=== PATIENT | male | born 1975 | race Caucasian/White ===

== ENCOUNTER 2016-04-14 14:37 | Inpatient (IN) ==
[2016-04-14] MEDS ORDERED: CLINDAMYCIN 900 MG in DEXTROSE 5% IN WATER 50 ML IV ONE (15:54)
[2016-04-14] MEDS ORDERED: ONDANSETRON 4 MG/2 ML VIAL IV ONE (15:56)
[2016-04-14] MEDS ORDERED: 0.9 % SODIUM CHLORIDE 1,000 ML IV ONE (15:56)
[2016-04-14] MEDS: HYDROmorphone 2 MG/ML SYRINGE IV PRN ×2 (16:20→18:02)
[2016-04-14] MEDS ORDERED: DEXTROSE 5% IN WATER 50 ML IV ONE (16:25)
[2016-04-14] MEDS ORDERED: CLINDAMYCIN 600 MG/4 ML VIAL ONE (16:25)
--- NOTE | 2016-04-14 17:11 | XRay Report ---
CLINICAL INFORMATION: Trauma COMPARISON: None. FINDINGS: No radiopaque foreign body identified. A small phlebolith is noted in the subdermal soft tissues over the anterior medial mid calf Soft tissues are normal. There is no fracture or other osseous abnormality. Joint spaces are normal. IMPRESSION: Negative Interpreted and Authenticated by: Nolan Arriaga 04/14/16
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
[2016-04-14 18:10] LABS: Basophils # (Auto) 0 K/mcL (0.0-0.3); Basophils % (Auto) 0.3 % (0.0-2.0); Eosinophils # (Auto) 0 K/mcL (0.0-0.7); Eosinophils % (Auto) 0.4 % (0.0-7.0); Granulocytes % (Auto) 70.7 % (38.0-78.0); Lymphocytes % (Auto) 19.2 % (15.5-49.0); Mean Cell Volume 88.1 fL (80.0-100.0); Mean Corpuscular HGB Conc 32.7 g/dL (31.0-36.0); Mean Corpuscular Hemoglobin 28.8 pg (26.0-34.0); Monocytes % (Auto) 9.4 % (1.0-9.0); Platelet Count 183 K/mcL (140-440); RBC 5.42 M/mcL (4.50-5.90); Red Cell Distribution Width 12.8 % (11.5-14.5)
[2016-04-14] MEDS ORDERED: VANCOMYCIN PER PHARMACY IV ONE (18:30)
[2016-04-14] MEDS ORDERED: ONDANSETRON 4 MG/2 ML VIAL IV PRN (18:30)
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
[2016-04-14] MEDS ORDERED: PIPERACILLIN SODIUM/TAZOBACTAM 3.375 GM VIAL IV ONE (20:26)
[2016-04-14] MEDS: PIPERACILLIN SODIUM/TAZOBACTAM 3.375 GM in DEXTROSE 5% IN WATER 50 ML IV SCH (20:27)
[2016-04-14] MEDS ORDERED: VANCOMYCIN 500 MG VIAL ONE (20:40)
[2016-04-14] MEDS: VANCOMYCIN 1,500 MG in 0.9 % SODIUM CHLORIDE 500 ML IV SCH (20:49)
[2016-04-14] MEDS: 0.9 % SODIUM CHLORIDE 10 ML SYRINGE IV SCH (22:27)
[2016-04-15] MEDS ORDERED: PIPERACILLIN SODIUM/TAZOBACTAM 3.375 GM VIAL IV ONE ×2 (00:24→05:22)
[2016-04-15] MEDS: PIPERACILLIN SODIUM/TAZOBACTAM 3.375 GM in DEXTROSE 5% IN WATER 50 ML IV SCH ×5 (00:52→17:09)
[2016-04-15 05:26] LABS: Appearance,Urine HAZY; Bacteria,Urine 0 /hpf (0); Bilirubin,Urine NEG (NEG); Color,Urine YELLOW; Glucose,Urine (UA) NEGATIVE (NEG); Leukocyte Esterase,Urine NEG /uL (NEG); Mucus,Urine FEW /hpf (0); Nitrate,Urine NEG (NEG); Protein,Urine NEG (NEG); Specific Gravity,Urine 1.017 (1.000-1.035); Sperm,Urine PRESENT /hpf (ABSENT); Urine Amorphous Crystals FEW /hpf (0); Urine Blood NEG mg/dL (<0.03); Urine RBC 3 /hpf (0-1); Urine Squamous Epithelial Cell < 1 /hpf (0-4); Urine Transitional Epi Cells < 1 /hpf (0-2); Urine WBC 1 /hpf (0-4); Urobilinogen,Urine NEG (NEG)
[2016-04-15 05:40] LABS: ALT/SGPT 29 U/l (0-40); Albumin 3.8 gm/dL (3.2-5.2); Albumin/Globulin Ratio 1.4 (1.0-2.3); Alkaline Phosphatase 113 U/L (39-117); Bilirubin,Direct < 0.2 mg/dL (0.0-0.3); Blood Urea Nitrogen 15 mg/dl (6-20); Gamma Glutamyl Transpeptidase 26 U/L (8-61); Magnesium 1.8 mg/dL (1.6-2.5); Phosphorous 4.3 mg/dL (2.7-4.5); Uric Acid 5.1 mg/dL (2.5-8.0)
[2016-04-15] MEDS: 0.9 % SODIUM CHLORIDE 10 ML SYRINGE IV SCH ×2 (05:51→10:31)
[2016-04-15] MEDS: VANCOMYCIN 1,500 MG in 0.9 % SODIUM CHLORIDE 500 ML IV SCH ×2 (08:14→20:21)
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
[2016-04-15] MEDS ORDERED: SCOPOLAMINE 1 PATCH PATCH TOPICAL ONE (11:19)
[2016-04-15] MEDS ORDERED: ONDANSETRON 4 MG/2 ML VIAL ONE (11:31)
[2016-04-15] MEDS ORDERED: PROMETHAZINE 25 MG/ML VIAL ONE (11:31)
[2016-04-15] MEDS ORDERED: MIDAZOLAM 5 MG/5 ML VIAL ONE (11:31)
[2016-04-15] MEDS ORDERED: fentaNYL 100 MCG/2 ML VIAL IV ONE ×2 (11:31→11:53)
[2016-04-15] MEDS ORDERED: GLYCOPYRROLATE 0.2 MG/ML VIAL IV ONE (11:31)
[2016-04-15] MEDS ORDERED: PROPOFOL 200 MG/20 ML VIAL IV ONE (11:31)
[2016-04-15] MEDS ORDERED: LIDOCAINE HCL/PF 100 MG/5 ML SYRINGE IV ONE (11:31)
[2016-04-15] MEDS ORDERED: DEXAMETHASONE 10 MG/ML VIAL ONE (11:31)
[2016-04-15] MEDS ORDERED: GENTAMICIN SULFATE 80 MG/2 ML VIAL IRR ONE (11:44)
[2016-04-15] MEDS ORDERED: HYDROmorphone 2 MG/ML SYRINGE IV PRN (11:53)
[2016-04-15] MEDS ORDERED: METHOCARBAMOL 1,000 MG/10 ML VIAL IV PRN (11:53)
[2016-04-15] MEDS ORDERED: MEPERIDINE 25 MG/ML SYRINGE IV PRN (11:53)
[2016-04-15] MEDS ORDERED: KETOROLAC 30 MG/ML VIAL IV ONE (11:53)
[2016-04-15] MEDS ORDERED: fentaNYL 100 MCG/2 ML VIAL IV PRN (11:53)
[2016-04-15] MEDS ORDERED: METOCLOPRAMIDE 10 MG/2 ML VIAL IV PRN (11:53)
[2016-04-15] MEDS ORDERED: BENZOCAINE/MENTHOL 1 LOZENGE PO PRN (11:53)
[2016-04-15] MEDS ORDERED: IPRATROPIUM/ALBUTEROL 3 ML AMPUL.NEB NEB PRN ×2 (11:53→13:06)
[2016-04-15] MEDS ORDERED: LACTATED RINGERS 1,000 ML IV SCH ×2 (12:00→13:06)
--- NOTE | 2016-04-15 12:24 | General Surgery Procedure Note ---
Date of procedure: Note initiated : 04/15/16 at 12:20 pm Service Date, if different from initiated Date: [] Pre-op diagnosis: Traumatic wound with soft tissue necrosis Rt, leg Post-op diagnosis: same Procedure: Excisional Debridement , Pulse lavage irrigation, Wound VAC placement. Findings: Wound dimensions 7 x5 x2 CM Tunnelling from 10 to 2 for 7 CM Wound extends to muscle and fascia EBL 30 ml Anesthesia: GLMA Surgeon: Paul Cervantes Pathology: other (Histology and cultures) Description of procedure: Wide Excision, Pulse lavage irrigation, Suture ligation of bleeders, WOUND VAC application Condition: stable Disposition: PACU (Wound VAC to be connected to Continuius wall suction at Medium, UNTIL portable apparatus available. Operation Well Tolerated.)
[2016-04-15] MEDS ORDERED: BACITRACIN 50,000 UNIT VIAL IR ONE (12:26)
[2016-04-15] MEDS ORDERED: CLINDAMYCIN 600 MG/4 ML VIAL IR ONE (12:32)
[2016-04-15] MEDS ORDERED: 0.9 % SODIUM CHLORIDE 10 ML SYRINGE IV PRN (13:23)
[2016-04-15] MEDS ORDERED: oxyCODONE/APAP 5/325MG TABLET PO PRN ×2 (14:35→17:02)
[2016-04-15] MEDS: NICOTINE 21 MG PATCH TOPICAL SCH (15:29)
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
[2016-04-16] MEDS: PIPERACILLIN SODIUM/TAZOBACTAM 3.375 GM in DEXTROSE 5% IN WATER 50 ML IV SCH ×3 (00:02→12:57)
[2016-04-16] MEDS: oxyCODONE/APAP 5/325MG TABLET PO PRN ×4 (04:20→19:06)
--- NOTE | 2016-04-16 08:22 | Operative Note ---
DATE OF OPERATION: 04/15/2016 PREOPERATIVE DIAGNOSIS: Traumatic wound left lower leg, medial surface of the condyle, soft tissue necrosis. POSTOPERATIVE DIAGNOSIS: Traumatic wound left lower leg, medial surface of the condyle, soft tissue necrosis. OPERATION: Excision debridement, pulse lavage irrigation. Wound V.A.C. placement. Wound dimensions: 7 x 5 x 2 cm. Proximal TUNNELING 10 o'clock to 2 o'clock for 7 cm. This wound extends to the underlying muscle and fascia. There is no skin cover over the inferior part of the wound which is distal WOUND BUT ABOVE THE MEDIAL MALLEOLUS of ankle joint. Wound dimensions 7 x 5 x 2 4 cm wound tunneling superiorly 10 o'clock to 2 o' clock for 7 cm. PROCEDURE NOTE: After obtaining informed consent, patient was taken to the operating room, anesthetized uneventfully in supine position using laryngeal mask airway. A timeout was called. First, we used a #15 scalpel blade and tangential excision of entire wound was carried out and all the devitalized skin and thrombosed blood vessels were sharply excised until bright red bleeding was noted from the wound edges and depth. Later, this wound was carefully probed with #7 curet. All the loculations under the skin were broken down with hand or curet. The wound bed itself was also curetted. Video Surveillance Technician samples were sent for cultures and pathology. We now proceeded to thoroughly wash and clean this wound using pulse lavage medical technologist. Three liters of normal saline mixed with 80 mg of gentamicin solution, 600 mg of clindamycin and 50,000 units of bacitracin was used. Towards completion, the wound was cleaned and the wound bed was dry and stable. We used a Xeroform gauze which was cut according to the dimensions of the wound and carefully placed superiorly. A black foam was applied over this to cover the extent of the wound. Later, this site was covered with adhesive dressings. A small window was created over the black foam. A second piece of black foam was placed at this site and covered again with the transparent adhesive dressing. A small portion of the size 1/4 was cut out and trackpad was applied. It was connected to continuous suction. This confirmed satisfactory collapse of the wound. Later, the tubing was snapped shut. In the postoperative stage, this patient will be admitted to the floor. He is a full admission. We will continue with wall suction intermediate to high so as to effectively provide decompression of this site. A I wound V.A.C. canister has been ordered and still awaited. In the meantime, the wound will be wall suctioned and connected to continuous negative pressure suction applied to the wall canister. ESTIMATED BLOOD LOSS: 30 mL. INSTRUMENT COUNT: Count of swabs, instruments and needles was reported to be correct. Procedure was well tolerated. VD:matt Job ID: [id number] Doc ID: [id number] Paul SIERRA
[2016-04-16] MEDS ORDERED: DOCUSATE SODIUM 100 MG CAPSULE PO SCH (09:00)
--- NOTE | 2016-04-16 09:35 | General Surgery Progress Note ---
Subjective Narrative: Note initiated : 04/16/16 at 9:31 am Service Date, if different from initiated Date: [] Patient: Juan Carlos Dimas 40 y/o M admitted on 04/14/16 for Infected Leg Wound. Chief Complaint: []PO Day # 1. Patient slept uneventfully after taking pain meds. Wound VAC was connected directly to wall suction. Patient AWAITS regular portable wound VAC . Objective Temp Pulse Resp BP Pulse Ox 98.3 F 69 18 142/93 99 04/16/16 07:47 04/16/16 07:47 04/16/16 07:47 04/16/16 07:47 04/16/16 07:47 AVSS. BRITT No interval changes, WNL. Left leg FAOM pad in place over wound and compressed. Dressing dry and intact. - Additional Data Intake & Output - Last 24 hours: Intake & Output 04/14/16 04/15/16 04/16/16 04/17/16 05:59 05:59 05:59 05:59 Intake Total 660 / 1716 1610 / 1610 Output Total 1150 / 1150 100 / 100 450 / 450 Balance -490 / 566 1510 / 1510 -450 / -450 Weight 245 lb 245 lb - Labs 04/14/16 16:40 04/15/16 03:20 Medical - PN: A/P - Time Spent With Patient Total time spent is greater than 50% in coordination of care (as documented) at patient's floor/unit and/or counseling patient: Satisfactory post operative progress. PLAN : Await discharge arrangements. Patient NEEDS : Portable Wound VAC. HHN to change VAC 3 times a week. PICC line, Ongoing IV antibiotics. Pain meds per hospitalist. Later OK to D/C and f/u at wound clinic in ONE week. 15 - 24 minutes (1) Traumatic open wound of lower leg with infection Status: Acute Current Visit: Yes
--- NOTE | 2016-04-16 11:42 | Surgical Pathology Report ---
HISTOLOGY SPECIMEN MICROSCOPIC DIAGNOSIS SKIN AND SOFT TISSUE, LEFT ANKLE WOUND, EXCISION: -- ULCERATION, FIBROSIS, FOCAL ABSCESSES AND HEMORRHAGE. (RLF:adj) CLINICAL HISTORY Left ankle wound non-healing. PROCEDURAL IMPRESSION Necrotic tissue left ankle. GROSS DESCRIPTION Received in formalin, labeled necrotic tissue left ankle, are two purple-francois pieces of skin. The first is 4.9 x 0.8 by up to 1.5 cm. The skin surface is purple francois. The margin is inked black. Cut surfaces are pink-francois. The second is a rectangular piece of skin. It is 4.5 x 3.2 by up to 1.0 cm. Centrally there is a V-shaped opening. It is 4.0 x 3.0 by up to 2.5 cm. The skin surface is pink-francois with a harder purple-francois area. The margin is inked black. Cut surfaces are purple-francois. [employer] Offbe[employer] sections submitted - two cassettes: A1 - first fragment of skin including tips and random sections; A2 - random section from second fragment. (SCB:lance) Electronically Signed by: Paris Zhang M.D.
[2016-04-16] MEDS: VANCOMYCIN 1,500 MG in 0.9 % SODIUM CHLORIDE 500 ML IV SCH (12:04)
[2016-04-16] MEDS: NICOTINE 21 MG PATCH TOPICAL SCH (12:05)
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
[2016-04-16 13:23] LABS: Ionized Calcium 1.23 mmol/L (1.16-1.32)
[2016-04-16 13:29] LABS: Blood Urea Nitrogen 19 mg/dl (6-20)
--- NOTE | 2016-04-17 09:53 | XRay Report ---
CLINICAL INFORMATION: PICC PLACEMENT COMPARISON: None. FINDINGS: Right PICC line is in satisfactory position overlying the SVC - near the right atrial junction. The heart is normal in size and configuration. Mediastinum and pulmonary vessels are normal. Small infiltrates or atelectasis are noted in both medial bases IMPRESSION: Mild atelectasis or less, likely, infiltrate in both medial bases PICC line in satisfactory position Interpreted and Authenticated by: Nolan Arriaga 04/17/16
== END 2016-04-16 19:05 | disposition home or self-care (01) | DRG 571 ==
LOC: MEDSUR 14:37 → ED 14:37 → MEDSUR 18:15 → OBSVTOIN 18:17 → MEDSUR 04-15 14:00
PROVIDERS: ADMIT Internal Medicine; ATTEND Internal Medicine
PROC: IDWOUND (2016-04-15 11:31)